=== PATIENT | female | born 1995 | race African-American/Black ===

== ENCOUNTER 2025-08-02 13:52 | Emergency (ER) | payer OTHER ==
[~2025-08-02] VITALS: Ht 157.5 cm; Wt 95.7 kg
[2025-08-02 14:27] LABS: KETONE, URINE AUTO RFX NEGATIVE (NEGATIVE); LEUKOCYTE ESTERASE UR AUTO RFX 2+ (NEGATIVE); MUCUS, URINE RFX SMALL (NEGATIVE); NITRITE, URINE AUTO RFX NEGATIVE (NEGATIVE); RBC, URINE AUTO RFX 19 /HPF (0-3); SQUAM EPITHELIAL CELL UR AURFX 13 /HPF (0-6); WBC, URINE AUTO RFX 8 /HPF (0-3); YEAST LIKE CELL URINE AUTO RFX SMALL
[2025-08-02 15:15] LABS: HEPATITIS B SURFACE ANTIBODY NEGATIVE (POSITIVE)
[2025-08-02 15:22] LABS: Trichomonas vaginalis (AMP) NOT DETECTED (NEGATIVE)
[2025-08-02 15:30] LABS: HCG, SERUM QUALITATIVE NEGATIVE (NEGATIVE)
[2025-08-02 15:39] LABS: HIV 1&2 SCREEN NEGATIVE (NEGATIVE)
[2025-08-02 15:46] LABS: GC DNA AMPLIFICATION NEGATIVE (NEGATIVE)
[2025-08-02 15:48] LABS: HEPATITIS C VIRUS ABY INDEX < 0.02 INDEX (<0.8)
[2025-08-02] MEDS ORDERED: FLUC-1 PO (15:50)
[2025-08-02] MEDS: FLUCONAZOLE 100 MG TAB PO ONE (16:14)
[2025-08-02 16:16] VITALS: BP 122/81; TEMP 98.4; O2SAT 99
== END 2025-08-02 16:16 | disposition home or self-care (01) ==
LOC: M ED 13:52
DX: N76.0 Acute vaginitis (principal); F17.210 Nicotine dependence, cigarettes, uncomplicated; Z79.899 Other long term (current) drug therapy

== ENCOUNTER → 2025-08-22 | Outpatient (CLI) | payer OTHER ==
[~2025-08-22] MED LIST: FLUC-1 PO
== END ==
LOC: M RAD 07:32
PROVIDERS: ATTEND Nurse Practitioner Family
DX: E06.3 Autoimmune thyroiditis (principal)